=== PATIENT | male | born 1975 | race Hispanic/Latino ===

== ENCOUNTER 2021-08-19 23:53 | Inpatient (IN) | payer SELFPAY ==
[2021-08-20] MEDS ORDERED: Sodium Chloride 0.9% 1,000 ML IV SCH ×2 (05:45)
[2021-08-20] MEDS ORDERED: Dextrose 5% in Water 1,000 ML IV PRN (07:15)
[2021-08-20] MEDS ORDERED: Dextrose 50% Abboject 50 ML SYRINGE SLOW IVP PRN (07:15)
[2021-08-20] MEDS ORDERED: Acetaminophen 325 MG TAB PO PRN (07:15)
[2021-08-20] MEDS ORDERED: Guaifenesin DM 100-10/5 ML UDCUP PO PRN (07:15)
[2021-08-20] MEDS ORDERED: Ondansetron PF 4 MG/2 ML Vial IVP PRN (07:15)
[2021-08-20] MEDS ORDERED: Senokot S 8.6-50 MG TAB PO PRN (07:15)
[2021-08-20 07:42] LABS: #Lymphocytes 1.2 thou/uL (1.20-3.40); #Monocytes 0.8 thou/uL (0.11-0.59); #Neutrophils 9.5 thou/uL (1.40-6.50); %Basophils 0.1 % (0.0-1.0); %Eosinophils 0.2 % (0.0-10.0); %Monocytes 6.9 % (0.0-10.0); %Neutrophils 82.8 % (42.0-75.0); Hemoglobin 15.6 g/dL (14.0-18.0); Mean Corpuscular HGB CONC 33.8 g/dL (32.0-36.0); Mean Corpuscular Hemoglobin 33.2 pg (27.0-31.0); Mean Corpuscular Volume 98.2 fL (78.0-98.0); Mean Platelet Volume 6.9 fL (7.4-10.4); Platelet Count 254 thou/uL (130-400); RBC Distribution Width 12.1 % (11.5-14.5); Red Blood Cell (RBC) Count 4.71 mill/uL (4.70-6.10); White Blood Cell (WBC) Count 11.5 thou/uL (4.8-10.8)
[2021-08-20 08:06] LABS: ALT (SGPT) 18 U/L (8-55); AST (SGOT) 8 U/L (5-34); Albumin 3.1 g/dL (3.5-5.0); Alkaline Phosphatase 89 U/L (40-110); Anion Gap 23 mmol/L (10-20); BUN (Urea Nitrogen) 32 mg/dL (8.9-20.6); Bilirubin, Total 0.5 mg/dL (0.2-1.2); Calc. Creatinine Clearance 88 mL/min (70-130); Calcium 9.9 mg/dL (7.8-10.44); Carbon Dioxide 13 mmol/L (22-29); Chloride 102 mmol/L (98-107); Globulin 4.5 g/dL (2.4-3.5); Glucose 357 mg/dL (70-105); Potassium 4.1 mmol/L (3.5-5.1); Protein, Total 7.6 g/dL (6.0-8.3); Sodium 134 mmol/L (136-145)
[2021-08-20] MEDS ORDERED: Meperidine HCl/PF 25 MG/ML VIAL SLOW IVP PRN (08:16)
[2021-08-20] MEDS: Heparin 5,000 UNITS/ML VIAL SC SCH ×2 (08:26→20:11)
[2021-08-20] MEDS: Sodium Chloride 0.9% 1,000 ML IV SCH ×4 (08:35→23:17)
[2021-08-20 09:43] LABS: SARS-CoV-2 NAA Rapid Test Not Detected (NotDetected)
[2021-08-20] MEDS: Morphine 4 MG/ML VIAL SLOW IVP PRN ×3 (10:00→20:11)
[2021-08-20 10:09] LABS: Cardiac Risk 18.7 (Less than 4.5); Cholesterol 485 mg/dl (< 200 Desired); HDL Cholesterol 26 mg/dL (>60 Neg Risk); Lipase 84 U/L (8-78); Triglycerides 542 mg/dL (Less than 150)
[2021-08-20] MEDS: HumaLOG 300 UNITS/3 ML VIAL SC PRN ×2 (12:24→16:32)
[2021-08-20 15:27] LABS: Acetaminophen Less than 6.0 mcg/mL (10.0-30.0); Alcohol Less than 10 mg/dL (Less than 10); Salicylate Less than 8.0 mg/dL (15.0-30.0)
[2021-08-20 17:36] LABS: Amphetamine Not Detected (NotDetected); Barbiturates Screen Not Detected (NotDetected); Benzodiazepine Screen Not Detected (NotDetected); Cocaine Metabolite Screen Not Detected (NotDetected); Methadone Not Detected (NotDetected); Methamphetamine Not Detected (NotDetected); Opiate Screen Detected (NotDetected); Oxycodone Screen Not Detected (NotDetected); Phencyclidine (PCP) Not Detected (NotDetected); THC/Cannabinoid Screen Not Detected (NotDetected); Tricyclic Screen Not Detected (NotDetected)
[2021-08-20] MEDS: Rosuvastatin 20 MG TAB PO SCH (20:10)
[2021-08-20] MEDS: Lantus 1000 UNITS/10 ML VIAL SC SCH (20:12)
[2021-08-21] MEDS: Morphine 4 MG/ML VIAL SLOW IVP PRN ×5 (01:40→20:56)
[2021-08-21] MEDS: Sodium Chloride 0.9% 1,000 ML IV SCH ×4 (04:25→16:56)
[2021-08-21] MEDS: HumaLOG 300 UNITS/3 ML VIAL SC PRN ×3 (05:00→17:02)
[2021-08-21] MEDS: Heparin 5,000 UNITS/ML VIAL SC SCH ×2 (07:53→20:52)
[2021-08-21] MEDS: Lantus 1000 UNITS/10 ML VIAL SC SCH ×2 (07:54→20:55)
[2021-08-21 12:17] LABS: #Eosinphils 0.1 thou/uL (0.0-0.7); #Lymphocytes 1.2 thou/uL (1.20-3.40); #Monocytes 0.7 thou/uL (0.11-0.59); #Neutrophils 5.6 thou/uL (1.40-6.50); %Basophils 0.5 % (0.0-1.0); %Eosinophils 1.7 % (0.0-10.0); %Lymphocytes 15.9 % (21.0-51.0); %Monocytes 9.1 % (0.0-10.0); %Neutrophils 72.8 % (42.0-75.0); Hemoglobin 13.7 g/dL (14.0-18.0); Mean Corpuscular HGB CONC 33.9 g/dL (32.0-36.0); Mean Corpuscular Volume 97.3 fL (78.0-98.0); Platelet Count 210 thou/uL (130-400); RBC Distribution Width 11.9 % (11.5-14.5); Red Blood Cell (RBC) Count 4.15 mill/uL (4.70-6.10); White Blood Cell (WBC) Count 7.6 thou/uL (4.8-10.8)
[2021-08-21 12:50] LABS: ALT (SGPT) 15 U/L (8-55); AST (SGOT) 13 U/L (5-34); Albumin 2.7 g/dL (3.5-5.0); Alkaline Phosphatase 72 U/L (40-110); Anion Gap 13 mmol/L (10-20); BUN (Urea Nitrogen) 15 mg/dL (8.9-20.6); Bilirubin, Total 0.6 mg/dL (0.2-1.2); Calc. Creatinine Clearance 136 mL/min (70-130); Calcium 8.4 mg/dL (7.8-10.44); Carbon Dioxide 20 mmol/L (22-29); Chloride 102 mmol/L (98-107); Globulin 3.6 g/dL (2.4-3.5); Glucose 238 mg/dL (70-105); Potassium 3.1 mmol/L (3.5-5.1); Protein, Total 6.3 g/dL (6.0-8.3); Sodium 132 mmol/L (136-145)
[2021-08-21] MEDS: Potassium Chloride 20 MEQ TAB PO SCH ×2 (15:16→20:52)
[2021-08-21] MEDS: metFORMIN 500 MG TAB PO SCH ×2 (15:16→20:53)
[2021-08-21] MEDS: Rosuvastatin 20 MG TAB PO SCH (20:52)
[2021-08-22] MEDS: Potassium Chloride 20 MEQ TAB PO SCH (03:10)
[2021-08-22] MEDS: Sodium Chloride 0.9% 1,000 ML IV SCH ×4 (03:11→13:32)
[2021-08-22] MEDS: Morphine 4 MG/ML VIAL SLOW IVP PRN ×4 (03:15→20:46)
[2021-08-22] MEDS: HumaLOG 300 UNITS/3 ML VIAL SC PRN ×3 (05:09→17:09)
[2021-08-22 06:38] LABS: #Eosinphils 0.4 thou/uL (0.0-0.7); #Lymphocytes 1.5 thou/uL (1.20-3.40); #Monocytes 0.5 thou/uL (0.11-0.59); #Neutrophils 4.6 thou/uL (1.40-6.50); %Basophils 0.4 % (0.0-1.0); %Eosinophils 5.2 % (0.0-10.0); %Lymphocytes 21.6 % (21.0-51.0); %Monocytes 6.8 % (0.0-10.0); Hemoglobin 13.1 g/dL (14.0-18.0); Mean Corpuscular HGB CONC 35.1 g/dL (32.0-36.0); Mean Corpuscular Hemoglobin 33.6 pg (27.0-31.0); Mean Corpuscular Volume 95.8 fL (78.0-98.0); Mean Platelet Volume 6.7 fL (7.4-10.4); Platelet Count 164 thou/uL (130-400); RBC Distribution Width 11.6 % (11.5-14.5)
[2021-08-22 06:59] LABS: ALT (SGPT) 22 U/L (8-55); AST (SGOT) 21 U/L (5-34); Albumin 2.3 g/dL (3.5-5.0); Alkaline Phosphatase 65 U/L (40-110); Anion Gap 10 mmol/L (10-20); BUN (Urea Nitrogen) 7 mg/dL (8.9-20.6); Bilirubin, Total 0.5 mg/dL (0.2-1.2); Calc. Creatinine Clearance 190 mL/min (70-130); Calcium 7.8 mg/dL (7.8-10.44); Carbon Dioxide 23 mmol/L (22-29); Chloride 102 mmol/L (98-107); Globulin 3.1 g/dL (2.4-3.5); Glucose 148 mg/dL (70-105); Potassium 3.1 mmol/L (3.5-5.1); Protein, Total 5.4 g/dL (6.0-8.3); Sodium 132 mmol/L (136-145)
[2021-08-22] MEDS: metFORMIN 500 MG TAB PO SCH ×3 (08:34→20:45)
[2021-08-22] MEDS: Heparin 5,000 UNITS/ML VIAL SC SCH ×2 (08:37→20:47)
[2021-08-22] MEDS: Rosuvastatin 20 MG TAB PO SCH (20:45)
[2021-08-22] MEDS: Lantus 1000 UNITS/10 ML VIAL SC SCH (20:47)
[2021-08-23] MEDS: HumaLOG 300 UNITS/3 ML VIAL SC PRN ×2 (05:41→12:34)
[2021-08-23 06:46] LABS: #Eosinphils 0.1 thou/uL (0.0-0.7); #Lymphocytes 1.5 thou/uL (1.20-3.40); #Monocytes 0.6 thou/uL (0.11-0.59); #Neutrophils 4.3 thou/uL (1.40-6.50); %Basophils 0.2 % (0.0-1.0); %Eosinophils 2.2 % (0.0-10.0); %Lymphocytes 22.5 % (21.0-51.0); %Monocytes 9.5 % (0.0-10.0); %Neutrophils 65.5 % (42.0-75.0); Hemoglobin 12.7 g/dL (14.0-18.0); Mean Corpuscular HGB CONC 34.7 g/dL (32.0-36.0); Mean Platelet Volume 6.7 fL (7.4-10.4); Platelet Count 169 thou/uL (130-400); RBC Distribution Width 11.5 % (11.5-14.5); Red Blood Cell (RBC) Count 3.85 mill/uL (4.70-6.10); White Blood Cell (WBC) Count 6.6 thou/uL (4.8-10.8)
[2021-08-23 07:11] LABS: ALT (SGPT) 30 U/L (8-55); AST (SGOT) 27 U/L (5-34); Albumin 2.4 g/dL (3.5-5.0); Alkaline Phosphatase 102 U/L (40-110); Anion Gap 14 mmol/L (10-20); BUN (Urea Nitrogen) 6 mg/dL (8.9-20.6); Bilirubin, Total 0.5 mg/dL (0.2-1.2); Calc. Creatinine Clearance 190 mL/min (70-130); Calcium 8.1 mg/dL (7.8-10.44); Carbon Dioxide 23 mmol/L (22-29); Chloride 101 mmol/L (98-107); Globulin 3.3 g/dL (2.4-3.5); Glucose 154 mg/dL (70-105); Protein, Total 5.7 g/dL (6.0-8.3); Sodium 135 mmol/L (136-145)
[2021-08-23 07:17] LABS: Potassium 2.9 mmol/L (3.5-5.1)
[2021-08-23] MEDS: Potassium Chloride 20 MEQ TAB PO SCH ×3 (08:19→20:54)
[2021-08-23] MEDS: metFORMIN 500 MG TAB PO SCH ×3 (08:19→20:54)
[2021-08-23] MEDS: Heparin 5,000 UNITS/ML VIAL SC SCH ×2 (08:19→20:56)
[2021-08-23] MEDS: Sodium Chloride 0.9% 1,000 ML IV SCH (08:20)
[2021-08-23] MEDS ORDERED: FLU VACC QS2021-22(6MOS UP)/PF 60 MCG/0.5 ML SYRINGE IM ONE (09:00)
[2021-08-23] MEDS ORDERED: Prevnar 13-Val Conj/PF 0.5 ML SYRINGE IM ONE (09:00)
[2021-08-23] MEDS ORDERED: Atorvastatin Calcium 40 MG TAB PO SCH (21:00)
[2021-08-24] MEDS: Potassium Chloride 20 MEQ TAB PO SCH ×2 (01:05→08:19)
[2021-08-24] MEDS: Sodium Chloride 0.9% 1,000 ML IV SCH (01:12)
[2021-08-24] MEDS: HumaLOG 300 UNITS/3 ML VIAL SC PRN (05:22)
[2021-08-24] MEDS ORDERED: glipiZIDE 5 MG TAB PO SCH (07:30)
[2021-08-24 08:18] LABS: ALT (SGPT) 31 U/L (8-55); AST (SGOT) 24 U/L (5-34); Albumin 2.9 g/dL (3.5-5.0); Alkaline Phosphatase 109 U/L (40-110); Anion Gap 13 mmol/L (10-20); BUN (Urea Nitrogen) 5 mg/dL (8.9-20.6); Bilirubin, Total 0.6 mg/dL (0.2-1.2); Calc. Creatinine Clearance 190 mL/min (70-130); Carbon Dioxide 28 mmol/L (22-29); Chloride 99 mmol/L (98-107); Globulin 3.8 g/dL (2.4-3.5); Glucose 157 mg/dL (70-105); Potassium 3.4 mmol/L (3.5-5.1); Protein, Total 6.7 g/dL (6.0-8.3); Sodium 137 mmol/L (136-145)
[2021-08-24] MEDS: Heparin 5,000 UNITS/ML VIAL SC SCH (08:19)
[2021-08-24 08:31] VITALS: BP 144/91; TEMP 98.1
[2021-08-24] MEDS ORDERED: Lisinopril 5 MG TAB PO SCH (09:00)
[2021-08-24] MEDS: metFORMIN 500 MG TAB PO SCH (09:01)
== END 2021-08-24 13:10 | disposition home or self-care (01) | DRG 439 ==
LOC: T4-B 08-20 05:36
PROVIDERS: ADMIT Student in an Organized Health Care Education/Training Program; ATTEND Internal Medicine
DX: K85.90 Acute pancreatitis without necrosis or infection, unspecified (principal); N17.9 Acute kidney failure, unspecified; Z20.822 Contact with and (suspected) exposure to COVID-19; K59.00 Constipation, unspecified; E11.9 Type 2 diabetes mellitus without complications; I10 Essential (primary) hypertension; E78.5 Hyperlipidemia, unspecified; E66.9 Obesity, unspecified; Z68.37 Body mass index [BMI] 37.0-37.9, adult; Z91.14 Patient's other noncompliance with medication regimen
CPT/HCPCS: 36415; 36416; 76705; 80053; 80061; 80306; 80307; 83690; 85025; 86140; J1644; J1815; J2270; J2405; J7050; U0002